=== PATIENT | male | born 1965 | race Caucasian/White ===

== ENCOUNTER 2023-07-26 08:39 | Emergency (ER) | payer OTHER, SELFPAY ==
--- NOTE | 2023-07-26 08:50 | ED.URI ---
HPI - URI/Sore Throat General Chief Complaint: Upper Respiratory Infection Stated Complaint: sorethroat Time Seen by Provider: 07/26/23 09:09 Source: patient and RN notes reviewed Mode of arrival: ambulatory Limitations: no limitations History of Present Illness HPI Narrative: 58-year-old male presents with concern for sore throat, cough, nasal drainage that started on Monday. He reports his daughter has strep throat 2 weeks ago. He reports he has been taking Tylenol ibuprofen without relief. Reports cough kept him awake last night MD elicited complaint: cough and sore throat Related Data Home Medications Medication Instructions Recorded Confirmed cyclobenzaprine 5 mg tablet mg 07/26/23 pantoprazole 40 mg tablet,delayed mg PO 07/26/23 release Allergies Allergy/AdvReac Type Severity Reaction Status Date / Time No Known Allergies Allergy Verified 07/26/23 09:01 Review of Systems Review of Systems: CONSTITUTIONAL: Reports malaise. Denies chills, sweats, or fever. EYES: Denies visual changes, redness, or discharge. ENT: Reports rhinorrhea, congestion, sore throat. CARDIOVASCULAR: Denies chest pain, palpitations, or edema. RESPIRATORY: Reports cough. Denies dyspnea. GASTROINTESTINAL: Denies abdominal pain, nausea, vomiting, diarrhea SKIN: Denies rash or itching. MUSCULOSKELETAL: Reports myalgia. NEUROLOGIC: Denies headache. All systems reviewed & are unremarkable except as noted in HPI and below PMFSH Comments At time of signature, agree with nursing past medical, surgical, social and family history. There is no relevant family history pertinent to the presenting complaint Exam Narrative: GENERAL: Well-appearing, well-nourished, and in no acute distress. HEAD: Normocephalic EYES: PERRLA, conjunctivae clear ENT: Nares clear, turbinates edematous and erythematous, clear discharge. Mucous membranes moist. TM pearly enrique with dull light reflex bilaterally; no tragal tenderness. Oropharynx not erythematous without lesions. Tonsils not enlarged and without exudate, no drooling, no hoarseness, no trismus, uvula midline. NECK: Supple. No lymphadenopathy CHEST: Clear to auscultation, breath sounds equal. No wheezing, rhonchi, rales, or stridor. No respiratory distress, speaks in full sentences. HEART: Regular rate and rhythm. No murmur heard. SKIN: Warm, dry, no rash. NEURO: Alert and oriented x3. PSYCH: Normal mood and affect Course Course Emergency Course: Patient is aware of diagnosis, understands and agrees to treatment plan. Anticipatory guidance given. Patient agrees to follow-up as directed and is aware of reasons to seek care at the emergency department. Portions of this record may have been created with voice recognition software Level of Care: Express Care Visit Vital Signs Vital signs: Vital Signs Temperature 97.8 F 07/26/23 08:59 Pulse Rate 97 07/26/23 08:59 Respiratory Rate 18 07/26/23 08:59 Blood Pressure 141/86 H 07/26/23 08:59 Pulse Oximetry 98 07/26/23 08:59 Oxygen Delivery Room Air 07/26/23 08:59 Temperature 97.8 F 07/26/23 08:59 Pulse Rate 97 07/26/23 08:59 Respiratory Rate 18 07/26/23 08:59 Blood Pressure 141/86 H 07/26/23 08:59 Pulse Oximetry 98 07/26/23 08:59 Oxygen Delivery Room Air 07/26/23 08:59 Reviewed. MDM - URI/Sore Throat MDM Narrative Medical decision making narrative: Differential diagnosis considered: Maloney virus, strep pharyngitis, allergic rhinitis, upper respiratory tract infection, sinusitis, rhinosinusitis, nasopharyngitis. viral pharyngitis, otitis media, otitis externa, pneumonia, bronchitis, viral cough syndrome, viral syndrome, and influenza. Exam findings show no acute concerns or changes; patient is non-toxic appearing and is in no distress. Patient is appropriate for outpatient treatment and follow-up. Lab Data Attestation: I reviewed the patient's lab results. Labs: Lab Results 07/26/23 Rang
[2023-07-26 08:59] VITALS: BP 141/86; PULSE 97; RESP 18; TEMP 36.6; O2SAT 98
== END 2023-07-26 09:32 | disposition home or self-care (01) ==
PROVIDERS: Emergency Provider Nurse Practitioner
DX: U07.1 COVID-19 (principal)
CPT/HCPCS: 87081; 87426; 87804; 87880; 99213; C9803; G0463

== ENCOUNTER 2024-01-21 16:45 | Emergency (ER) | payer OTHER, SELFPAY ==
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
[2024-01-21 16:47] VITALS: BP 147/93; PULSE 119; RESP 18; TEMP 36.6; O2SAT 98
--- NOTE | 2024-01-21 17:27 | ED.UPPEXIN ---
HPI - Extremity Injury (Upper) General Chief Complaint: Extremity Injury, Upper Stated Complaint: left shoulder Time Seen by Provider: 01/21/24 17:12 History of Present Illness HPI narrative: 58-year-old male presents to the emergency department for a left shoulder injury. 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 He is reporting pain in his AC joint. Denies other injury acquired, numbness or paresthesias. Denies Midline neck pain. Related Data Home Medications Medication Instructions Recorded Confirmed cyclobenzaprine 5 mg tablet mg 07/26/23 pantoprazole 40 mg tablet,delayed mg PO 07/26/23 release Allergies Allergy/AdvReac Type Severity Reaction Status Date / Time No Known Allergies Allergy Verified 07/26/23 09:01 Review of Systems Review of Systems: CONSTITUTIONAL: Denies fever, chills, or sweats. EYES: Denies visual changes, redness, or discharge. ENT: Denies rhinorrhea, congestion, sore throat, or otalgia. CARDIOVASCULAR: Denies chest pain, palpitations, or edema. RESPIRATORY: Denies cough or dyspnea. GASTROINTESTINAL: Denies abdominal pain, nausea, vomiting, or diarrhea. GENITOURINARY: Denies dysuria or hematuria. SKIN: Denies rash or itching. MUSCULOSKELETAL: see HPI NEUROLOGIC: Denies headache, numbness, or weakness. PSYCHIATRIC: Denies anxiety or depression. Exam Narrative: GENERAL: Well-appearing, well-nourished, and in no acute distress. HEAD: Normocephalic, atraumatic. NECK: Supple. CHEST: Clear to auscultation. No respiratory distress. HEART: Regular rate and rhythm. No murmur heard. Normal peripheral pulses. EXTREMITIES: LUE: tenderness along the left acromioclavicular joint and coracoid process with limited active range of motion including limited anterior flexion and abduction. Patient able to supinate. Full passive range of motion. No tenderness to remainder of upper extremity. Positive empty can sign and Neer's sign. radial pulse 2 +. Sensation intact. SKIN: Warm, dry, no rash. NEURO: No focal deficits. 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 Triage vital significant for tachycardia 119 which has since resolved. X-rays of the left shoulder show no acute osseous abnormality. Exam is consistent with shoulder impingement. I offered arm sling, NSAIDs, muscle relaxers lidocaine patches, however patient politely declined and states he has Flexeril and NSAIDs he will use at home. encouraged follow-up with Orthopedics, referral provided. ED return precautions provided, patient discharged in stable condition. Discharge Plan Discharge Clinical Impression: Impingement of left shoulder Patient Disposition: Home, Self-Care Condition: Stable Instructions: Antibiotic Form, Shoulder Sprain (ED) Additional Instructions: you were evaluated in the emergency department for left shoulder pain. Your x-ray show no bony abnormality. Your exam is concerning for impingement injury. Please take anti-inflammatories and muscle relaxers as discussed, rest, ice, and compress or injury. Please follow-up with orthopedics for further evaluation and management. Return to the emergency department if you deve
== END 2024-01-21 17:45 | disposition home or self-care (01) ==
LOC: ANHED 17:39
PROVIDERS: Emergency Provider Physician Assistant
DX: M25.812 Other specified joint disorders, left shoulder (principal); X50.0XXA Overexertion from strenuous movement or load, initial encounter; Y93.F2 Activity, caregiving, lifting
CPT/HCPCS: 73030; 99283